=== PATIENT | female | born 1980 | race Caucasian/White ===

== ENCOUNTER → 2019-11-17 | Outpatient (CLI) | payer OTHER ==
[~2019-11-17] MED LIST: ALBU90OI; ALBU90OI INH; AMOX500 PO; BENZ100A PO; BIRTH CONTROL PILLS; CALCAVITDA; CEPH500; CIPR250 PO; CODBUTASA PO; CYCL10 PO; DIPH50; DOXY100 PO; FLUSAL2505 IH; MONT10T; MULVITMINE PO; NAPR500 PO; OLAN2.5; ORTHO TRICYCLEN LO; PROACE100 PO; PROM25 PO; RXCYCL10 PO; RXPROACE PO; STOOL SOFTENER; TRAACE PO; TRAM50; VALP250
[2019-11-17 10:02] LABS: BASOPHILS ABSOLUTE AUTO 0.03 K/mm3 (0.00-0.23); BASOPHILS PERCENT AUTO 0 % (0-2); EOSINOPHILS ABSOLUTE AUTO 0.05 K/mm3 (0.00-0.68); EOSINOPHILS PERCENT AUTO 1 % (0-6); Hematocrit 43.2 % (33.0-51.0); Hemoglobin 14.5 g/dL (11.5-16.0); IMMATURE GRAN ABSOLUTE AUTO 0.06 K/mm3 (0.00-0.10); IMMATURE GRAN PERCENT AUTO 1 % (0-1); LYMPHOCYTES ABSOLUTE AUTO 2.34 K/mm3 (0.84-5.20); LYMPHOCYTES PERCENT AUTO 31 % (21-46); MONOCYTES ABSOLUTE AUTO 0.37 K/mm3 (0.16-1.47); MONOCYTES PERCENT AUTO 5 % (4-13); Mean Corpuscular HGB 32.4 pg (26.0-34.0); Mean Corpuscular HGB Conc 33.6 g/dL (31.5-36.5); Mean Corpuscular Volume 96 fL (80-100); Mean Platelet Volume 9.3 fL (9.1-12.4); NEUTROPHILS PERCENT AUTO 62 % (41-73); Platelet Count 163 K/mm3 (150-400); RDW Coefficient Variation 13.2 % (11.7-14.2); RDW Standard Deviation 47.2 fL (35.1-46.3); Red Blood Cell Count 4.48 M/mm3 (3.80-5.20); White Blood Cell Count 7.45 K/mm3 (4.00-11.30)
[2019-11-17 10:21] LABS: Alanine Aminotransfer (ALT/SGP 25 U/L (12-78); Albumin, Blood 3.3 g/dL (3.4-5.0); Albumin/Globulin Ratio 0.9 (0.8-1.8); Alk Phos 52 U/L (40-126); Anion Gap 10 mmol/L (6-16); Aspartate Aminotrans (AST/SGOT 15 U/L (12-37); Bilirubin, Total 0.2 mg/dL (0.1-1.0); Blood Urea Nitrogen 12 mg/dL (8-24); Bun/Creatinine Ratio 13.3 (12.0-20.0); CO2, Blood 26 mmol/L (21-32); Chloride, Blood 103 mmol/L (98-108); Globulin, Blood 3.5 g/dL (2.2-4.0); Glomerular Filtration Rate >60 (60-); Glucose, Blood 151 mg/dL (70-99); Sodium, Blood 139 mmol/L (136-145); Total Protein, Blood 6.8 g/dL (6.4-8.2)
== END | disposition home or self-care (01) ==
LOC: LAB SHORT 09:58 → LAB EV 09:58
PROVIDERS: Family Medicine
DX: R42 Dizziness and giddiness (principal)
CPT/HCPCS: 80053; 85025

== ENCOUNTER 2020-05-26 17:32 | Observation (INO) | payer OTHER ==
[~2020-05-26] VITALS: Ht 157.5 cm; Wt 99.8 kg
[~2020-05-26 17:32] MED LIST changes: -ALBU90OI
[2020-05-26 18:26] LABS: BASOPHILS ABSOLUTE AUTO 0.07 K/mm3 (0.00-0.23); BASOPHILS PERCENT AUTO 1 % (0-2); EOSINOPHILS ABSOLUTE AUTO 0.11 K/mm3 (0.00-0.68); EOSINOPHILS PERCENT AUTO 1 % (0-6); Hematocrit 43.2 % (33.0-51.0); Hemoglobin 14.6 g/dL (11.5-16.0); IMMATURE GRAN ABSOLUTE AUTO 0.15 K/mm3 (0.00-0.10); IMMATURE GRAN PERCENT AUTO 1 % (0-1); LYMPHOCYTES ABSOLUTE AUTO 3.81 K/mm3 (0.84-5.20); LYMPHOCYTES PERCENT AUTO 31 % (21-46); MONOCYTES ABSOLUTE AUTO 0.86 K/mm3 (0.16-1.47); MONOCYTES PERCENT AUTO 7 % (4-13); Mean Corpuscular HGB 33.3 pg (26.0-34.0); Mean Corpuscular HGB Conc 33.8 g/dL (31.5-36.5); Mean Corpuscular Volume 99 fL (80-100); Mean Platelet Volume 9.8 fL (9.1-12.4); NEUTROPHILS ABSOLUTE AUTO 7.26 K/mm3 (1.96-9.15); NEUTROPHILS PERCENT AUTO 59 % (41-73); Platelet Count 210 K/mm3 (150-400); RDW Coefficient Variation 13.8 % (11.7-14.2); RDW Standard Deviation 50.2 fL (35.1-46.3); Red Blood Cell Count 4.38 M/mm3 (3.80-5.20); White Blood Cell Count 12.26 K/mm3 (4.00-11.30)
[2020-05-26 18:49] LABS: Alanine Aminotransfer (ALT/SGP 29 U/L (12-78); Albumin, Blood 3.7 g/dL (3.4-5.0); Anion Gap 6 mmol/L (6-16); Aspartate Aminotrans (AST/SGOT 13 U/L (12-37); Bilirubin, Total 0.6 mg/dL (0.1-1.0); Blood Urea Nitrogen 10 mg/dL (8-24); Bun/Creatinine Ratio 12.5 (12.0-20.0); CO2, Blood 26 mmol/L (21-32); Calcium, Blood 9.1 mg/dL (8.5-10.1); Chloride, Blood 105 mmol/L (98-108); Globulin, Blood 3.7 g/dL (2.2-4.0); Glomerular Filtration Rate >60 (60-); Glucose, Blood 74 mg/dL (70-99); Phosphorus, Blood 3.8 mg/dL (2.5-4.9); Potassium, Blood 3.9 mmol/L (3.5-5.5); Sodium, Blood 137 mmol/L (136-145); Total Protein, Blood 7.4 g/dL (6.4-8.2)
[2020-05-26 18:54] LABS: Alk Phos 57 U/L (50-136)
[2020-05-26] MEDS ORDERED: Loratadine10 MG PO (19:38)
[2020-05-26] MEDS ORDERED: DULO60 PO (19:38)
[2020-05-26] MEDS ORDERED: LAMICTAL200 MG PO (19:40)
[2020-05-26] MEDS ORDERED: RISP2 PO (19:41)
[2020-05-26] MEDS ORDERED: MONT10T PO (19:41)
[2020-05-26] MEDS ORDERED: Robaxin750 MG PO (19:42)
[2020-05-26] MEDS ORDERED: AIMOVIG AU140 MG/1 M SQ (19:42)
[2020-05-26] MEDS ORDERED: NORETHINDRONE AC5 MG PO (19:44)
[2020-05-26] MEDS ORDERED: PROM25 PO (19:45)
[2020-05-26] MEDS ORDERED: MECL25 PO (19:46)
--- NOTE | 2020-05-26 20:04 | NUR ---
SHIFT SUMMARY: PATIENT QUICK ADMIT FROM [facility] FOR MRI; SCREENING FORM COMPLETED-FAXED TO IMAGING. FLUIDS STARTED. AWAITING POLE SANDER OPERATOR. REPORT GIVEN TO ONCOMING RN.
--- NOTE | 2020-05-26 22:04 | NUR ---
1944 THIS NURSE WAS ADVISED VIA IMAGING THAT CORPORATE SAFETY COORDINATOR HAD GONE HOME FOR THE DAY AT 1600 AND THAT TEST WOULD BE PERFORMED IN EARLY AM; RN CLINICAL RESOURCE--MARCO WESLEY RN ADVISED OF TEST THAT HAD BEEN ORDERED STAT FROM [facility] FOR TODAY; THIS NURSE ADVISED PATIENT OF THE ABOVE WITH PATIENT OK WITH TEST AM.
--- NOTE | 2020-05-27 03:08 | NUR ---
SHIFT SUMMARY: 39 Y/O FEMALE RESTED COMFORTABLY ALL SHIFT; DENIES PAIN OR NAUSEA; PT AWAITING MRI TEST SCHEDULED FOR TODAY IN AM; BED LOW POSITION WITH CALL LIGHT AT SIDE.
--- NOTE | 2020-05-27 07:27 | NUR ---
PATIENT REQUESTING ANTI-ANXIETY MED PRIOR TO MRI PROCEDURE. RECEIVED VERBAL ORDER FROM DR. KEITA FOR 1MG IV ATIVAN NOW.
--- NOTE | 2020-05-27 10:30 | NUR ---
MRI TIME CHANGED TO 1130 INSTEAD OF 0730. RECEIVED VERBAL ORDER FOR ANOTHER DOSE OF 1MG IV ATIVAN FOR MRI AND ANXIETY.
--- NOTE | 2020-05-27 17:09 | NUR ---
Discharge Summary A/Ox4, pleasant and cooperative with care. Up in room independently, does state has mild weakness d/t numbness in bilat lower legs and upper arms. No c/o pain. Discharge to home. Reviewed dischage paperwork with patient, copy provided. No questions at this time. No new meds. Referrals completed. IV removed, WNL. Will be escorted by CHIEF CLINICAL DIETITIAN via w/c. Personal belongings sent home, transportation via personal vehicle.
[2020-06-03] MEDS ORDERED: Prednisone20 MG PO (00:34)
== END 2020-05-27 17:28 | disposition home or self-care (01) ==
LOC: MEDS 17:32
PROVIDERS: ADMIT Hospitalist
DX: R20.2 Paresthesia of skin (principal); F31.81 Bipolar II disorder; E78.5 Hyperlipidemia, unspecified; E66.9 Obesity, unspecified; I10 Essential (primary) hypertension; J45.909 Unspecified asthma, uncomplicated; R53.1 Weakness; F17.210 Nicotine dependence, cigarettes, uncomplicated; Z88.6 Allergy status to analgesic agent; Z88.5 Allergy status to narcotic agent; Z88.2 Allergy status to sulfonamides; Z79.899 Other long term (current) drug therapy
CPT/HCPCS: 36415; 80053; 83735; 84100; 84443; 85025; 85651; 86140; 96361; 96374; 96376; 97161; G0378; J2060; J7030

== ENCOUNTER → 2020-05-30 | Outpatient (CLI) | payer OTHER ==
[~2020-05-30] MED LIST changes: +AIMOVIG AU140 MG/1 M SQ; +DULO60 PO; +LAMICTAL200 MG PO; +Loratadine10 MG PO; +MECL25 PO; +MONT10T PO; +NARA2.5 PO; +NORETHINDRONE AC5 MG PO; +Prednisone10 MG PO; +Prednisone20 MG PO; +RISP2 PO; +Robaxin750 MG PO
== END ==
LOC: LAB 07:21 → PLD 07:21 → LAB SHORT 07:21
DX: B36.0 Pityriasis versicolor (principal)
CPT/HCPCS: 88312

== ENCOUNTER 2020-06-09 16:39 | Observation (INO) | payer OTHER ==
[~2020-06-09] VITALS: Ht 157.5 cm; Wt 99.7 kg
[~2020-06-09 16:39] MED LIST changes: -NARA2.5 PO; -Prednisone10 MG PO
[2020-06-09 17:32] LABS: BASOPHILS ABSOLUTE AUTO 0.03 K/mm3 (0.00-0.23); BASOPHILS PERCENT AUTO 0 % (0-2); EOSINOPHILS ABSOLUTE AUTO 0.07 K/mm3 (0.00-0.68); EOSINOPHILS PERCENT AUTO 1 % (0-6); Hematocrit 43.9 % (33.0-51.0); Hemoglobin 14.6 g/dL (11.5-16.0); IMMATURE GRAN ABSOLUTE AUTO 0.14 K/mm3 (0.00-0.10); IMMATURE GRAN PERCENT AUTO 2 % (0-1); LYMPHOCYTES ABSOLUTE AUTO 1.85 K/mm3 (0.84-5.20); LYMPHOCYTES PERCENT AUTO 21 % (21-46); MONOCYTES ABSOLUTE AUTO 0.65 K/mm3 (0.16-1.47); MONOCYTES PERCENT AUTO 7 % (4-13); Mean Corpuscular HGB 32.6 pg (26.0-34.0); Mean Corpuscular HGB Conc 33.3 g/dL (31.5-36.5); Mean Corpuscular Volume 98 fL (80-100); Mean Platelet Volume 9.9 fL (9.1-12.4); NEUTROPHILS ABSOLUTE AUTO 6.08 K/mm3 (1.96-9.15); NEUTROPHILS PERCENT AUTO 69 % (41-73); Platelet Count 152 K/mm3 (150-400); RDW Coefficient Variation 13.4 % (11.7-14.2); RDW Standard Deviation 48.7 fL (35.1-46.3); Red Blood Cell Count 4.48 M/mm3 (3.80-5.20); White Blood Cell Count 8.82 K/mm3 (4.00-11.30)
[2020-06-09 17:57] LABS: Anion Gap 7 mmol/L (6-16); Blood Urea Nitrogen 10 mg/dL (8-24); Bun/Creatinine Ratio 13.1 (12.0-20.0); CO2, Blood 27 mmol/L (21-32); Calcium, Blood 8.9 mg/dL (8.5-10.1); Chloride, Blood 106 mmol/L (98-108); Creatinine, Blood 0.76 mg/dL (0.40-1.00); Glomerular Filtration Rate >60 (60-); Glucose, Blood 113 mg/dL (70-99); Potassium, Blood 3.8 mmol/L (3.5-5.5); Sodium, Blood 140 mmol/L (136-145)
[2020-06-09] MEDS ORDERED: NARA2.5 PO (20:34)
--- NOTE | 2020-06-10 05:44 | NUR ---
SHIFT SUMMARY: SBP 150S. TEMP 98.5-99.3. AAOX4. COMMUNICATES NEEDS. REDNESS AND SWELLING TO R FACE, R NECK, AND ACROSS THE BOTTOM OF CHIN. PT RETCHING SEVERAL TIMES TONIGHT, STATES SHE CAN TASTE THE INFECTION, FEELS IT MAY BE DRAINING IN MOUTH. UNABLE TO OBSERVE IN PT'S MOUTH CLEARLY DUE TO CHEEK SWELLING AND LIMITED ABILITY TO OPEN JAW ALL THE WAY. BREATHING UNAFFECTED. PT ABLE TO EAT A SOFT DINNER, CHEWING GINGERLY. MED X 2 TONIGHT FOR PAIN W/GOOD EFFECT. PT APPEARS TO HAVE SLEPT WELL. ABT INFUSED PER ORDERS.
--- NOTE | 2020-06-10 18:20 | NUR ---
SHIFT SUMMARY PATIENT IS PLEASANT, ALERT AND ORIENTED AND INDEPENDENT. NO ACUTE CONCERNS AT THIS TIME. FACIAL SWELLING IS GETTING BETTER. DENIES ANY EXCESS PAIN. NO SHORTESS OF BREATH OR CHEST PAIN NOTED.
--- NOTE | 2020-06-11 04:03 | NUR ---
SHIFT SUMMARY: VSS. AFEB. AAOX4. COMMUNICATES NEEDS. AMB W/CANE. SWELLING ON R FACE AND NECK IMPROVED. NO VISIBLE REDNESS. PT REPORTS PAIN X 1 SO FAR TONIGHT- STATES PAINFUL AREA HAS SHRUNK IN SIZE. OVERALL FEELING BETTER. NO ACUTE CHANGES OVERNIGHT.
[2020-06-11] MEDS ORDERED: DOXY100 PO (10:24)
[2020-06-11] MEDS ORDERED: Prednisone10 MG PO (10:25)
--- NOTE | 2020-06-11 11:05 | NUR ---
DISCHARGE SUMMARY PATIENT IS PLEASANT, ALERT AND ORIENTED. IV REMOVED. ALL INSTRUCTIONS GIVEN TO THE PATIENT FOR DISCHARGE. ALL MEDICATIONS SENT TO THE PHARMACY OF CHOICE. PATIENT WHEELED OUT BY THE STOCKROOM HELPER.
== END 2020-06-11 10:58 | disposition home or self-care (01) ==
LOC: ER 16:39 → MEDS 21:33
PROVIDERS: Physician Assistant; ADMIT Family Medicine
DX: L03.211 Cellulitis of face (principal); F31.9 Bipolar disorder, unspecified; I10 Essential (primary) hypertension; G43.909 Migraine, unspecified, not intractable, without status migrainosus; Z79.899 Other long term (current) drug therapy; Z88.6 Allergy status to analgesic agent; Z88.5 Allergy status to narcotic agent; Z88.2 Allergy status to sulfonamides; F17.210 Nicotine dependence, cigarettes, uncomplicated; E78.5 Hyperlipidemia, unspecified; J45.909 Unspecified asthma, uncomplicated; Z71.6 Tobacco abuse counseling; E66.01 Morbid (severe) obesity due to excess calories; Z68.41 Body mass index [BMI] 40.0-44.9, adult
CPT/HCPCS: 36415; 70491; 80048; 85025; 96365-59; 96366; 96367; 96375; 96375-59; 96376; 99285-25; G0378; J1100; J1885; J2543; J7050; Q9967

== ENCOUNTER 2020-08-16 17:41 | Inpatient (IN) | payer OTHER ==
[~2020-08-16] VITALS: Ht 157.5 cm; Wt 101.8 kg
[~2020-08-16 17:41] MED LIST changes: +NARA2.5 PO; +Prednisone10 MG PO
[2020-08-16 18:28] LABS: BASOPHILS ABSOLUTE AUTO 0.04 K/mm3 (0.00-0.23); BASOPHILS PERCENT AUTO 1 % (0-2); EOSINOPHILS ABSOLUTE AUTO 0.13 K/mm3 (0.00-0.68); EOSINOPHILS PERCENT AUTO 2 % (0-6); Hematocrit 43.4 % (33.0-51.0); Hemoglobin 14.4 g/dL (11.5-16.0); IMMATURE GRAN ABSOLUTE AUTO 0.08 K/mm3 (0.00-0.10); IMMATURE GRAN PERCENT AUTO 1 % (0-1); LYMPHOCYTES PERCENT AUTO 33 % (21-46); MONOCYTES ABSOLUTE AUTO 0.45 K/mm3 (0.16-1.47); MONOCYTES PERCENT AUTO 5 % (4-13); Mean Corpuscular HGB 31.8 pg (26.0-34.0); Mean Corpuscular HGB Conc 33.2 g/dL (31.5-36.5); Mean Corpuscular Volume 96 fL (80-100); NEUTROPHILS PERCENT AUTO 59 % (41-73); Platelet Count 202 K/mm3 (150-400); RDW Coefficient Variation 12.4 % (11.7-14.2); Red Blood Cell Count 4.53 M/mm3 (3.80-5.20)
[2020-08-16 18:49] LABS: Alanine Aminotransfer (ALT/SGP 32 U/L (12-78); Albumin, Blood 3.4 g/dL (3.4-5.0); Albumin/Globulin Ratio 0.9 (0.8-1.8); Alk Phos 58 U/L (50-136); Anion Gap 5 mmol/L (6-16); Aspartate Aminotrans (AST/SGOT 17 U/L (12-37); Bilirubin, Total 0.3 mg/dL (0.1-1.0); Blood Urea Nitrogen 10 mg/dL (8-24); Bun/Creatinine Ratio 10.9 (12.0-20.0); CO2, Blood 25 mmol/L (21-32); Calcium, Blood 9.6 mg/dL (8.5-10.1); Chloride, Blood 110 mmol/L (98-108); Creatinine, Blood 0.91 mg/dL (0.40-1.00); Globulin, Blood 3.7 g/dL (2.2-4.0); Glomerular Filtration Rate >60 (60-); Glucose, Blood 141 mg/dL (70-99); Potassium, Blood 3.6 mmol/L (3.5-5.5); Sodium, Blood 140 mmol/L (136-145); Total Protein, Blood 7.1 g/dL (6.4-8.2)
[2020-08-16] MEDS ORDERED: PROM25 PO (20:43)
[2020-08-16] MEDS ORDERED: BUPROPION XL150 M1 PO (20:54)
--- NOTE | 2020-08-17 04:34 | NUR ---
SHIFT SUMMARY ASSUMED CARE OF PT AT 2200. PT A/OX4, HAVE N/T IN EXTREMITES FROM B12 DEFICENCY TWO MONTHS AGO. HEART SOUNDS REGULAR, LUNG SOUNDS CLEAR, PT CURRENT SMOKER. PT IS INDEPENDENT IN ROOM.PT NPO SINCE ON THE FLOOR DUE TO POSSIBLE SURGERY THIS AM. NO ACUTE EVENTS DURING THE NIGHT. PT SLEPT THE WHOLE NIGHT. CALL LIGHT IN REACH, BED IN LOWEST POSTION.
[2020-08-17 05:35] LABS: BASOPHILS ABSOLUTE AUTO 0.05 K/mm3 (0.00-0.23); BASOPHILS PERCENT AUTO 1 % (0-2); EOSINOPHILS ABSOLUTE AUTO 0.12 K/mm3 (0.00-0.68); EOSINOPHILS PERCENT AUTO 2 % (0-6); Hematocrit 41.1 % (33.0-51.0); Hemoglobin 13.5 g/dL (11.5-16.0); IMMATURE GRAN PERCENT AUTO 1 % (0-1); LYMPHOCYTES ABSOLUTE AUTO 2.58 K/mm3 (0.84-5.20); LYMPHOCYTES PERCENT AUTO 34 % (21-46); MONOCYTES ABSOLUTE AUTO 0.51 K/mm3 (0.16-1.47); MONOCYTES PERCENT AUTO 7 % (4-13); Mean Corpuscular HGB 31.6 pg (26.0-34.0); Mean Corpuscular HGB Conc 32.8 g/dL (31.5-36.5); Mean Corpuscular Volume 96 fL (80-100); Mean Platelet Volume 9.8 fL (9.1-12.4); NEUTROPHILS ABSOLUTE AUTO 4.14 K/mm3 (1.96-9.15); NEUTROPHILS PERCENT AUTO 55 % (41-73); Platelet Count 180 K/mm3 (150-400); RDW Coefficient Variation 12.7 % (11.7-14.2); RDW Standard Deviation 44.6 fL (35.1-46.3); Red Blood Cell Count 4.27 M/mm3 (3.80-5.20)
[2020-08-17 06:03] LABS: Anion Gap 7 mmol/L (6-16); Blood Urea Nitrogen 10 mg/dL (8-24); Bun/Creatinine Ratio 10.9 (12.0-20.0); CO2, Blood 24 mmol/L (21-32); Calcium, Blood 8.7 mg/dL (8.5-10.1); Chloride, Blood 108 mmol/L (98-108); Creatinine, Blood 0.92 mg/dL (0.40-1.00); Glomerular Filtration Rate >60 (60-); Glucose, Blood 107 mg/dL (70-99); Potassium, Blood 3.8 mmol/L (3.5-5.5); Sodium, Blood 139 mmol/L (136-145)
[2020-08-17] MEDS ORDERED: SENN187 PO (14:38)
[2020-08-17] MEDS ORDERED: Florastor250 MG PO (14:38)
[2020-08-17] MEDS ORDERED: OXYC5 PO (14:39)
[2020-08-17] MEDS ORDERED: CLIN300 PO (14:39)
--- NOTE | 2020-08-17 15:15 | NUR ---
DISCHARGE INSTRUCTIONS COMPLETED AND DISCUSSED WITH PT EXPRESSING UNDERSTANDING. SCRIPTS FAXED TO [facility]. MADE AN APPT WITH DR. NICHOLS, DENTIST AT [facility] AND GAVE INFORMATION TO PT. TO CURB VIA W/C.
== END 2020-08-17 15:59 | disposition home or self-care (01) | DRG 159 ==
LOC: ER 17:41 → MEDS 20:14
PROVIDERS: Nurse Practitioner Acute Care; Physician Assistant; ADMIT Internal Medicine
DX: K02.9 Dental caries, unspecified (principal); M27.2 Inflammatory conditions of jaws; M89.58 Osteolysis, other site; I10 Essential (primary) hypertension; F31.9 Bipolar disorder, unspecified; F17.210 Nicotine dependence, cigarettes, uncomplicated
CPT/HCPCS: 36415; 80048; 80053; 85025; 85651; 86140; 94760; 99284; A9270; J2543; J7030

== ENCOUNTER → 2022-05-27 | Outpatient (CLI) | payer OTHER ==
[~2022-05-27] MED LIST changes: +BUPROPION XL150 M1 PO; +CLIN300 PO; +Florastor250 MG PO; +OXYC5 PO; +SENN187 PO
== END | disposition home or self-care (01) ==
LOC: LAB 08:06 → LAB SHORT 08:06
DX: Z01.812 Encounter for preprocedural laboratory examination (principal); Z86.14 Personal history of Methicillin resistant Staphylococcus aureus infection
CPT/HCPCS: 87081

== ENCOUNTER → 2022-06-03 | Outpatient (CLI) | payer OTHER | END | disposition home or self-care (01) | LOC: LAB SHORT 08:20 → LAB 08:20 | DX: Z01.812 Encounter for preprocedural laboratory examination (principal); Z86.14 Personal history of Methicillin resistant Staphylococcus aureus infection | CPT/HCPCS: 87081 ==

== ENCOUNTER → 2024-06-04 | Outpatient (CLI) | payer OTHER ==
[2024-06-04 10:16] LABS: BASOPHILS ABSOLUTE AUTO 0.04 K/mm3 (0.00-0.23); BASOPHILS PERCENT AUTO 0 % (0-2); EOSINOPHILS ABSOLUTE AUTO 0.15 K/mm3 (0.00-0.68); EOSINOPHILS PERCENT AUTO 1 % (0-6); Hematocrit 42.1 % (33.0-51.0); Hemoglobin 14.2 g/dL (11.5-16.0); IMMATURE GRAN ABSOLUTE AUTO 0.05 K/mm3 (0.00-0.10); IMMATURE GRAN PERCENT AUTO 0 % (0-1); LYMPHOCYTES ABSOLUTE AUTO 3.35 K/mm3 (0.84-5.20); LYMPHOCYTES PERCENT AUTO 29 % (21-46); MONOCYTES ABSOLUTE AUTO 0.72 K/mm3 (0.16-1.47); MONOCYTES PERCENT AUTO 6 % (4-13); Mean Corpuscular HGB 31.3 pg (26.0-34.0); Mean Corpuscular HGB Conc 33.7 g/dL (31.5-36.5); Mean Corpuscular Volume 93 fL (80-100); Mean Platelet Volume 10.2 fL (9.1-12.4); NEUTROPHILS ABSOLUTE AUTO 7.45 K/mm3 (1.96-9.15); NEUTROPHILS PERCENT AUTO 63 % (41-73); Platelet Count 169 K/mm3 (150-400); RDW Coefficient Variation 13.1 % (11.7-14.2); RDW Standard Deviation 43.7 fL (35.1-46.3); Red Blood Cell Count 4.54 M/mm3 (3.80-5.20); White Blood Cell Count 11.76 K/mm3 (4.00-11.30)
[2024-06-04 10:27] LABS: Albumin, Blood 3.8 g/dL (3.4-5.0); Albumin/Globulin Ratio 1.1 (0.8-1.8); Bilirubin, Total 0.3 mg/dL (0.1-1.0); Bun/Creatinine Ratio 12.5 (12.0-20.0); Calcium, Blood 9.2 mg/dL (8.5-10.1); Creatinine, Blood 0.8 mg/dL (0.40-1.00); Globulin, Blood 3.4 g/dL (2.2-4.0); Potassium, Blood 4.2 mmol/L (3.5-5.5); Total Protein, Blood 7.2 g/dL (6.4-8.2)
== END | disposition home or self-care (01) ==
LOC: LAB SHORT 10:12
PROVIDERS: Physician Assistant
DX: R10.9 Unspecified abdominal pain (principal)
CPT/HCPCS: 80053; 83690; 85025

== ENCOUNTER → 2025-05-11 | Outpatient (CLI) | payer OTHER | END | disposition home or self-care (01) | LOC: LAB 16:11 → LAB SHORT 16:11 | PROVIDERS: Family Medicine | DX: Z01.419 Encounter for gynecological examination (general) (routine) without abnormal findings (principal) | CPT/HCPCS: 87624; G0123 ==